=== PATIENT | female | born 1980 | race Caucasian/White ===

== ENCOUNTER 2021-01-13 00:04 | Day surgery (SDC) | payer BC, SELFPAY ==
[2021-01-04 15:34] VITALS: BMI 22.8
[2021-01-13] VITALS (7 sets, daily range): BP systolic 114–139; BP diastolic 64–83; PULSE 54–93; RESP 13–18; TEMP 36.3–37; O2SAT 97–100
[2021-01-13] MEDS: LACTATED RINGERS 1,000 ML 30 ML IV CONT ×2 (06:25→09:38)
[2021-01-13] MEDS: KETOROLAC 15 MG/ML VIAL (*BKC) IV PUSH (06:30)
[2021-01-13] MEDS: ACETAMINOPHEN 500 MG TABLET 1000 MG PO (06:30)
--- NOTE | 2021-01-13 08:03 | WPDANESEPPF ---
Anes - Initial Pre Proc Eval Procedure: Operation Date: 01/13/21 08:00 Proposed Procedures p Laparoscopic Bilateral Tubal Ligation with Fulguration, - Sophie Lucas MD s Hysteroscopy with Анна Endometrial Ablation - Sophie Lucas MD Date/Time: 01/13/21 08:03 Surgeon: Sophie Lucas MD Pre Op Diagnosis: desired sterilization, abn bleeding Patient Data Age: 40 Gender: F Height: 1.73 m Weight: 66.55 kg Last Vital Signs Temp 98.6 F 01/13/21 06:11 Pulse 74 01/13/21 06:11 Resp 18 01/13/21 06:11 BP 114/64 01/13/21 06:11 Pulse Ox 100 01/13/21 06:11 Allergies Allergy/AdvReac Type Severity Reaction Status Date / Time No Known Allergies Allergy Verified 01/13/21 06:39 Home Medications Medication Instructions Recorded Confirmed Type desogestrel-ethinyl estradiol 1 tablet PO DAILY 01/04/21 01/13/21 History [Enskyce] liothyronine 50 mcg PO BID 01/04/21 01/13/21 History multivitamin 1 tablet PO DAILY 01/04/21 01/13/21 History Patient hx anesthesia problems: none Family hx anesthesia problems: none Results Review: All pre-operative results and documents have been reviewed as part of the pre-operative evaluation. [facility] Past Medical History Medical History (Updated 01/13/21 @ 08:03 by Jhon Molina MD) Hypothyroid Social History Social History Smoking status: Never smoker Alcohol intake: current Drinks per week: 3 Substance use: never Substance use type: does not use Other substance usage details: CBD OIL FOR ARTHRITIS Living arrangements: with family Spiritual care concerns: No Anes - Eval Final PreProcedure Day of Procedure 01/13/21 08:03 Patient weight: normal Heart: regular rate and rhythm Lungs: clear to auscultation Airway: Mallampati scale class II Neurological: alert and oriented Last oral intake: >/= 8 hours ASA classification: II Emergent: no Anesthetic plan: proceed Anesthesia type and monitoring: general ETT and standard monitoring Results Review: All pre-operative results and documents have been reviewed as part of the pre-operative evaluation. Informed Consent: The patient's anesthetic plan and its attendant risks and benefits were discussed with the patient/family/POA. Questions were solicited and answers provided to the satisfaction of the patient/family/POA.
--- NOTE | 2021-01-13 08:06 | PM.HPGS ---
History of Present Illness History of Present Illness Consent: Risks, benefits, and alternatives have been discussed and questions answered. Patient agrees to proceed with procedure. Chief complaint: desired sterilization, abn bleeding Narrative: Diomedes Taylor is a 40 year old female here for planned sterilization and treatment for AUB. Review of Systems Review of Systems: All systems reviewed & are unremarkable except as noted in HPI and below PMFSH Past Medical History Medical History Hypothyroid Social History Social History Smoking status: Never smoker Alcohol intake: current Drinks per week: 3 Substance use: never Substance use type: does not use Other substance usage details: CBD OIL FOR ARTHRITIS Living arrangements: with family Spiritual care concerns: No Meds Home Medications and Allergies Home Medications Medication Instructions Recorded Confirmed Type desogestrel-ethinyl estradiol 1 tablet PO DAILY 01/04/21 01/13/21 History [Enskyce] liothyronine 50 mcg PO BID 01/04/21 01/13/21 History multivitamin 1 tablet PO DAILY 01/04/21 01/13/21 History Allergies Allergy/AdvReac Type Severity Reaction Status Date / Time No Known Allergies Allergy Verified 01/13/21 06:39 Vital Signs Vital Signs - 24 hr 01/13/21 06:11 Temperature 37.0 C Pulse Rate 74 Respiratory Rate 18 Blood Pressure 114/64 Pulse Oximetry 100 Exam Const: General: cooperative, healthy appearing and comfortable HENMT: Head: normal to inspection Ears: hearing grossly normal bilaterally General nose exam: Normal external nose present Face and sinus: normal facial exam Chest: Chest palpation & inspection: normal inspection of the chest Resp: Effort & Inspection: normal respiratory effort and able to speak in complete sentences Cardio: Jugular venous distension: no JVD GI: Inspection: normal to inspection Back/Spine/Pelvis: Back: no CVA tenderness Skin: General skin exam: normal color Neuro: General: oriented to person and oriented to place Extrem: General: normal to inspection Psych: Appearance: grossly normal Assessment and Plan Additional Plan AUB/desires sterilization: Plan laparoscopy with tubal sterilization, hysteroscopy with endometrial ablation. Risk/benefits/alternatives discussed
--- NOTE | 2021-01-13 08:09 | WPDHPUPDATE1 ---
History and Physical Update Update Date/Time: 01/13/21 08:09 History and Physical has been reviewed, including an updated exam of the patient. There are NO changes in the patient's condition. Risks, benefits, and alternatives have been discussed and questions answered. Patient agrees to proceed with procedure.
[2021-01-13] MEDS: BUPIVACAINE HCL 0.5% PF 30 ML VIAL INFILTRATE (09:04)
--- NOTE | 2021-01-13 10:14 | P.OP_ITS ---
Procedure Note - Detailed Date of Procedure 01/13/21 Pre-op Diagnosis desired sterilization, abn bleeding Post-op Diagnosis same Procedure Performed Laparoscopic bilateral tubal sterilization with bipolar cautery Hysteroscopy D&C with endometrial ablation (LEONA) Surgeon Sophie Lucas MD Anesthesia general Indications Abnormal uterine bleeding, desired sterilization Findings normal tubes/ovaries/uterus/endometrium; Small polyp noted within the uterine cavity Description of Procedure The patient was taken to the operating room where general anesthesia was found to be adequate. She was prepared and draped in the dorsal supine position in [facility]. Urine was straight catheterized out of her bladder. A speculum was used to visualize the cervix and a single toothed tenaculum placed on the anterior lip of the cervix. The uterus sounded to 10 cm, cervix measured 4cm. The lucio uterine manipulator was placed within the cervix and affixed to the tenaculum. Attention was turned to the umbilicus which was injected with 1% lidocaine. An incision was made with a scalpel and veres needle used to enter into the peritneal cavity. Saline drop test was positive for entry and intraabdominal pr essure was -1mmHg. She was insufflated to 14mmHg. A 5mm trochar was inserted with optical entry into the peritoneal cavity. She was then placed in Trendelenberg. The anatomy appeared normal and no adhesions noted. So a suprapubic port was placed by injecting the skin with local, incising with a scalpel and a 5mm port placed with direct visualization. Klelambertoenger bipolar cautery was used to cau terize the mid portion of the Fallopian tubes on the left first then the right including the tube and the paratubal tissue for approximately 2cm length. We then released pneumoperitneum and removed the port sites and closed with monocryl suture. Attention was turned back to the vagina which the speculum reinserted, Lucio manipulator removed and hysteroscope inserted into the endometrial cavity. Fluffy white endometrium and clot noted within the uterine cavity and a small polyp in the lower uterine segment. D&C performed by dilating the cervix with heagar dilators and using a sharp currette to remove tissue and the polyp. This was sent to pathology. The leona was then prepared and inserted and set to a cavity length of 6. The cavity width was in the Green and the cavity assess ment passed. The ablation proceeded without complication and the hysteroscope reinserted. Good cautery throughout the endometrium noted. The procedure was complete so all instruments were removed from the vagina. Silver nitrate used on left tenaculum site for hemostasis. The patient tolerated the procedure well. All sponge lap and needle counts were correct. Estimated Blood Loss 10.0 Urine Output 100 Drains No Packing No Pathology yes (endometrial currettings) Complications No immediate complications Condition stable Disposition PACU
--- NOTE | 2021-01-16 11:26 | ECG_ITS ---
Measurements Intervals [place] Rate: 61 P: 52 NE: 145 QRS: 84 QRSD: 81 T: 60 QT: 406 QTc: 409 Interpretive Statements SINUS RHYTHM CANNOT RULE OUT SEPTAL INFARCT, AGE INDETERMINATE ABNORMAL ECG Electronically Signed On 01-16-2021 11:42:27 CDT by Kapil Bone D.O.
== END 2021-01-13 11:36 | disposition home or self-care (01) ==
PROVIDERS: Visit Provider Obstetrics & Gynecology
PROC: (CPT 58671; principal; 2021-01-13 08:00)
PROC: 0U5B8ZZ Destruction of Endometrium, Via Natural or Artificial Opening Endoscopic (ICD-10-PCS; CPT 58563; 2021-01-13 08:00)
DX: Z30.2 Encounter for sterilization (principal); N93.9 Abnormal uterine and vaginal bleeding, unspecified; R94.31 Abnormal electrocardiogram [ECG] [EKG]; E03.9 Hypothyroidism, unspecified
CPT/HCPCS: 58670; 58563; 88305; 93005; A9270; J1100; J1170; J1885; J2250; J2405; J2704; J2710; J3010; J7030; J7120